=== PATIENT | male | born 1960 | race Caucasian/White ===

== ENCOUNTER 2024-09-26 12:39 | Emergency (ER) | payer MEDICAID ==
[~2024-09-26] VITALS: Ht 182.9 cm; Wt 81.8 kg
[2024-09-26 14:39] VITALS: TEMP 97.8
--- NOTE | 2024-09-26 15:58 | Physician Documentation ---
History of Present Illness ~ Chief Complaint: ETOH Stated Complaint: DETOX Time Seen by MD: 14:05 Primary Medical Doctor: Dr. Butt in [place] Mode of Arrival: POV, Ambulatory HPI Patient is seen today stating he is needing to detox off alcohol. Patient states he last had a drink this morning and states he is already feeling withdrawals from the drinking. Patient states he drinks 16 or more fluid oz of hard alcohol daily. Patient originally sore he did not drink more than eight fluid oz in triage but now states he drinks at least double that. Patient denies any current chest pain or shortness of breath or abdominal pain or nausea, vomiting, diarrhea. He has no other concern or complaint at this time other than little anxiety. Tetanus within 5 years?: No Medication Reconciliation Allergies: Coded Allergies: No Known Allergies (Unverified , 08/25/24) Past Medical History Smoking Status: Never smoker Review of Systems Constitutional: Denies: chills, fever, weakness Eyes: Denies: pain, blurred vision ENT: Denies: ear pain, nose pain, throat pain, mouth pain Respiratory: Denies: cough, shortness of breath Cardiovascular: Denies: chest pain, palpitations Gastrointestinal: Denies: abdominal pain, nausea, vomiting Genitourinary: Denies: burning, dysuria Male Genitalia: Denies: penile discharge, testicular pain Neurological: Denies: headache, dizziness Musculoskeletal: Denies: pain, swelling Integumentary: Denies: rash, lesions Allergic/Immunologic: Denies: hives, itching Hematologic/Lymphatic: Denies: no symptoms reported Psychiatric: Denies: depression, anxiety Physical Exam Vital Signs: Temperature: 97.8, Source: Oral, Heart Rate: 81, Respiratory Rate: 16, BP: 146/91, Pulse Oximetry: 96, Weight: 81.820 Oxygen Flow Rate: 0 Physical Exam General: Awake and Alert, no acute distress. HEENT: Conjunctiva pink, Sclera clear, Mucus Membranes moist. Neck: Supple without masses and tenderness. Resp: Unlabored. Lungs clear to auscultation bilaterally. Heart: Regular Rate and rhythm, normal S1 and S2 without murmur, rub or gallop. Abdomen: Soft and non tender no organomegaly Extremities: No cyanosis,clubbing or edema. Skin: Warm and Dry. Progress Progress Note Patient transferred into my care around 5:00 p.m. he was very tremulous. I evaluated him at bedside there was concern for seizure activity but he was awake alert oriented during the entire shaking episode. no hallucination. He was not having a seizure. His vitals were completely normal during this. He received some IV fluids and single dose of Ativan. I has been watching him from my computer station and he has had complete resolution of his shaking over the last 1/2 hour. He did endorse to us that his symptoms were driven by anxiety more than anything and they have now resolved. He then requested abruptly to leave the hospital. His vitals still are normal and he plans to go to detox. I would prefer that we observe him for a longer period of time given his shaking episode that he is potentially higher risk for alcohol withdrawal however at this time he is safe for detox facility. I will give him a dose of Librium and advised him to return if he has any worsening symptoms Results/Orders Results/Orders Orders - LEW CHEUNG MD Normal Saline 1000ml (Sodium Chloride 10 (09/26/24 17:05) Completed Orders - LEW CHEUNG MD Lorazepam Inj (Ativan Inj) (09/26/24 17:05) Lorazepam Inj (Ativan Inj) (09/26/24 17:04) Phenobarbital Inj (Phenobarbital Inj.) (09/26/24 17:05) Thiamine Inj. (Thiamine Inj.) (09/26/24 17:05) Phenobarbital Inj (Phenobarbital Inj.) (09/26/24 17:10) Medications Received in ER Medications (Trade) Dose Ordered Sig/Rene Route PRN Reason Start Time Stop Time Status Last Admin Dose Admin (Ativan inj) 1 mg ONCE ONCE IV 09/26/24 17:05 09/26/24 17:06 DC 09/26/24 17:05 1 MG Sodium Chloride 1,000 ml @ 1,000 mls/hr ONCE ONCE IV 09/26/24 17:05 09/26/24 18:04 09/26/24 17:06 1,000 MLS/HR Vital Signs 09/26/24 09/26/24 09/26/24 13:08 14:39 14:49 Temp 97.8 97.8 Pulse 88 81 Resp 18 16 16 B/P (MAP) 122/76 146/91 (109) Pulse Ox 96 O2 Flow Rate 0 Laboratory Tests Test 09/26/24 16:13 09/26/24 16:32 White Blood Count 5.0 Red Blood Count 3.85 L Hemoglobin 11.7 L Hematocrit 34.5 L Mean Corpuscular Volume 89.6 Mean Corpuscular Hemoglobin 30.3 Mean Corpuscular Hemoglobin Concent 33.9 Red Cell Distribution Width 15.3 H Platelet Count 140 Mean Platelet Volume 6.5 L Neutrophils (%) (Auto) 63.7 Lymphocytes (%) (Auto) 21.1 Monocytes (%) (Auto) 10.3 Eosinophils (%) (Auto) 4.2 Basophils (%) (Auto) 0.7 Neutrophils # (Auto) 3.2 Lymphocytes # (Auto) 1.1 Monocytes # (Auto) 0.5 Eosinophils # (Auto) 0.2 Basophils # (Auto) 0.0 CBC Comment Sodium Level 140 Potassium Level 4.0 Chloride Level 105 Carbon Dioxide Level 23.8 L Anion Gap 11 Blood Urea Nitrogen 29 H Creatinine 2.16 H Estimated GFR/1.73 m2 31 BUN/Creatinine Ratio 13.4 Glucose Level 79 Calcium Level 8.1 L Ammonia 22 Albumin 3.2 L Lipase 35 Chemistry Comments Ethyl Alcohol Level 140 H Urine Specimen Description Voided Urine Color Yellow Urine Clarity Clear Urine pH 6.0 Urine Specific [place] <=1.005 Urine Protein Trace Urine Glucose (UA) Negative Urine Ketones Negative Urine Occult Blood Trace-intact Urine Nitrite Negative Urine Bilirubin Negative Urine Urobilinogen 0.2 Urine Leukocyte Esterase Negative Urine RBC 0-2 Urine WBC None seen Urine Squamous Epithelial Cells None seen Urine Bacteria None seen Urine Culture Indicated Not ind Volume Urine Centrifuged 10 ml Urine Comment Urine Opiates Screen Negative Urine Methadone Screen Positive Urine Fentanyl Screen Negative Urine Barbiturates Screen Negative Urine Phencyclidine Screen Negative Urine Amphetamines Screen Negative Urine Benzodiazepines Screen Positive Urine Cocaine Screen Negative Urine Cannabinoids Screen Negative Drug Screen Comment Medical Decision Making Findings Patient is seen today stating he is needing to detox off alcohol. Patient states he last had a drink this morning and states he is already feeling withdrawals from the drinking. Patient states he drinks 16 or more fluid oz of hard alcohol daily. Patient originally sore he did not drink more than eight fluid oz in triage but now states he drinks at least double that. Patient denies any current chest pain or shortness of breath or abdominal pain or nausea, vomiting, diarrhea. He has no other concern or complaint at this time other than little anxiety. Additional Comment Delirium tremens, alcoholic hallucinosis, alcohol withdrawal syndrome, anxiety Departure Disposition: 01 HOME / SELF CARE / HOMELESS Impression: Primary Impression: Alcohol withdrawal syndrome Qualified Codes: F10.930 - Alcohol use, unspecified with withdrawal, uncomplicated Additional Impression: Alcohol abuse Additional Impression Text Barriers to care alcohol use disorder Additional Instructions: This patient has been medically cleared for detox facility. If he has any worsening of his withdrawal symptoms or any seizure activity he should be sent immediately to the emergency department for further treatment and evaluation Referrals: NO PRIMARY CARE PROVIDER (PCP) Signature Scribe Signature: na Attestation: TANGELA Emerson Sep 26, 2024 15:58 LEW CHEUNG MD Sep 26, 2024 17:33
--- NOTE | 2024-09-26 16:16 | ELECTROCARDIOGRAPH REPORT ---
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
[2024-09-26 16:37] LABS: BILIRUBIN,URINE NEGATIVE (Neg); CLARITY,URINE CLEAR (Clear); COLOR,URINE YELLOW (Yellow); GLUCOSE, URINE NEGATIVE (Neg); KETONES,URINE NEGATIVE (Neg); LEUKOCYTE ESTERASE ,URINE NEGATIVE (Neg); NITRITES, URINE NEGATIVE (Neg); OCCULT BLOOD,URINE TRACE-INTACT (Neg); PROTEIN,URINE TRACE mg/dl (Neg); UROBILINOGEN,URINE 0.2 E.U/dL (0.2-1.0)
[2024-09-26 16:38] LABS: BASOPHILS % (AUTO) 0.7 % (0-1); EOSINOPHILS # (AUTO) 0.2 X10'3 (0-0.9); EOSINOPHILS % (AUTO) 4.2 % (0-6); HEMATOCRIT 34.5 % (42.0-52.0); HEMOGLOBIN 11.7 g/dl (14.0-17.9); LYMPHOCYTES # (AUTO) 1.1 X10'3 (1.1-4.8); LYMPHOCYTES % (AUTO) 21.1 % (21-51); MEAN CORPUSCULAR HEMOGLOBIN 30.3 PG (27.0-31.0); MEAN CORPUSCULAR HGB CONC 33.9 g/dL (33.0-36.5); MEAN CORPUSCULAR VOLUME 89.6 FL (78-98); MEAN PLATELET VOLUME 6.5 FL (7.4-10.4); MONOCYTES # (AUTO) 0.5 X10'3 (0-0.9); MONOCYTES % (AUTO) 10.3 % (2-12); NEUTROPHILS # (AUTO) 3.2 X10'3 (1.8-7.7); NEUTROPHILS % (AUTO) 63.7 % (42-75); PLATELET COUNT 140 X10'3 (140-440); RED BLOOD COUNT 3.85 X10'6 (4.70-6.10); RED CELL DISTRIBUTION WIDTH 15.3 % (11.5-14.5)
[2024-09-26 16:38] LABS: UA COLLECTION TYPE VOIDED
[2024-09-26 16:54] LABS: BACTERIA,URINE NONE SEEN /HPF (Neg); RBC,URINE 0-2 /HPF (0-2); SQUAMOUS EPITHELIAL CELL,UR NONE SEEN /LPF (FEW); WBC,URINE NONE SEEN /HPF (0-4)
[2024-09-26] MEDS: LORazepam 2 mg/ml vial IV ONE (17:05)
[2024-09-26] MEDS ORDERED: phenoBARBITAL inj 260 MG in normal saline 100ml IV soln 98 ML IV ONE (17:05)
[2024-09-26] MEDS: normal saline 1000ml 1,000 ML IV ONE (17:06)
[2024-09-26 17:07] LABS: URINE AMPHETAMINE SCREEN NEGATIVE (Neg); URINE BARBITUATE SCREEN NEGATIVE (Neg); URINE BENZODIAZEPINES SCREEN POSITIVE (Neg); URINE CANNABINOID SCREEN NEGATIVE (Neg); URINE COCAINE SCREEN NEGATIVE (Neg); URINE METHADONE SCREEN POSITIVE (Neg); URINE OPIATE SCREEN NEGATIVE (Neg); URINE PHENCYCLIDINE SCREEN NEGATIVE (Neg)
[2024-09-26] MEDS: LORazepam 2 mg/ml vial ONE (17:08)
[2024-09-26] MEDS ORDERED: phenoBARBITAL inj 130 MG in normal saline 100ml IV soln 99 ML IV ONE (17:10)
[2024-09-26 17:12] LABS: ALBUMIN 3.2 G/DL (3.4-5.0); ANION GAP 11 (8-16); BLOOD UREA NITROGEN 29 MG/DL (7-18); BUN/CREATININE RATIO 13.4 (10.0-20.0); CALCIUM 8.1 MG/DL (8.5-10.1); CHLORIDE 105 MMOL/L (99-107); CREATININE 2.16 MG/DL (0.60-1.10); ETHANOL 140 MG/DL (<10); GLUCOSE 79 MG/DL (70-104); LIPASE 35 U/L (16-77); SODIUM 140 MMOL/L (135-145); TOTAL CARBON DIOXIDE 23.8 MMOL/L (24-32); eCRCL 38 ML/MIN; eGFR 31 ML/MIN
[2024-09-26 17:48] VITALS: BP 162/88; PULSE 83; RESP 16; O2SAT 96
[2024-09-26] MEDS: thiamine 100mg/ml 2ml inj. IV ONE (17:48)
[2024-09-26] MEDS: chlordiazePOXIDE 25mg capsule PO ONE (17:48)
== END 2024-09-26 17:50 | disposition home or self-care (01) ==
LOC: ER 12:40
DX: F10.239 Alcohol dependence with withdrawal, unspecified (principal); F41.9 Anxiety disorder, unspecified; I49.8 Other specified cardiac arrhythmias; Y90.6 Blood alcohol level of 120-199 mg/100 ml
CPT/HCPCS: 36415; 80048; 80305; 80320; 81001; 82140; 83690; 85025; 93005; 96361; 96374; 99284; J2060; J7030

== ENCOUNTER 2024-10-03 12:16 | Emergency (ER) | payer MEDICAID ==
[~2024-10-03] VITALS: Ht 182.9 cm; Wt 81.8 kg
[2024-10-03 12:21] VITALS: BP 170/95; PULSE 82; RESP 18; O2SAT 94
--- NOTE | 2024-10-03 12:28 | Physician Documentation ---
History of Present Illness ~ Chief Complaint: Medical Clearance Stated Complaint: MEDICAL CLEARANCE Time Seen by MD: 12:23 OK to notify your PCP?: No Primary Medical Doctor: Dr. Butt in [facility] 64-YEAR-OLD MALE PRESENTS TO THE ED WITH A COMPLAINT OF ALCOHOL INTOXICATION AND REQUEST FOR CLEARANCE TO GO TO [facility]. HE STATES HE NORMALLY DRINKS A QT OF ALCOHOL A DAY DENIES EVER BEING HOSPITALIZED FOR SEVERE WITHDRAWALS. SAYS HIS LAST DRINK WAS THIS MORNING. Day of Onset: Oct 03, 2024 Tetanus within 5 years?: No Medication Reconciliation Allergies: Coded Allergies: No Known Allergies (Unverified , 08/25/24) Review of Systems All Other Systems at this time: Reviewed and Negative ROS As stated above in the [facility], otherwise all systems are reviewed and negative. Physical Exam Vital Signs: Temperature: 98.7, Source: Oral, Heart Rate: 82, Respiratory Rate: 18, BP: 170/95, Pulse Oximetry: 94, Weight: 81.820 Physical Exam General: Alert, no apparent distress. Respiratory: Lungs clear, no respiratory distress. Cardiovascular: Regular rate and rhythm, no murmurs. Neurologic: Oriented x4. Psychiatric: Normal mood and affect. Skin: Normal color, warm and dry. No edema, no ecchymosis. Progress Results/Orders Results/Orders Vital Signs 10/03/24 12:21 Temp 98.7 Pulse 82 Resp 18 B/P (MAP) 170/95 Pulse Ox 94 Medical Decision Making Findings I do not see any reason why this patient can not be medically cleared for alcohol recovery.. Does not present intoxicated or an acute withdrawal Differential Dx:Considerations: Include: Intoxication-Alcohol, Intoxication- Other drug, Personality disorder, Substance abuse disorder, Acute delirium, Closed head injury, Cervical spine injury, Skull fracture, Fracture(s), Abrasion, Contusion, Foreign body, Hematoma, Laceration, Alcohol withdrawl syndrom, Encephalopathy, Hepatitis, Medically stable, Other Departure Disposition: 01 HOME / SELF CARE / HOMELESS Impression: Primary Impression: General medical exam Condition: Stable Discharge Instructions: Alcohol Intoxication, [id number] Additional Instructions: Medically clear for alcohol recovery Referrals: NO PRIMARY CARE PROVIDER (PCP) Signature Scribe Signature: f Attestation: Scribed for Miguel Angel Weinstein [place]. Representative by Miguel Angel Johnson NP . 10/03/24 14:24 MIGUEL ANGEL WEINSTEIN NP Oct 03, 2024 12:28
[2024-10-03 14:46] VITALS: TEMP 98.7
[2024-10-18] MEDS ORDERED: DOXY-460 PO (10:30)
== END 2024-10-03 14:47 | disposition home or self-care (01) ==
LOC: ER 12:17
DX: F10.129 Alcohol abuse with intoxication, unspecified (principal); Y90.9 Presence of alcohol in blood, level not specified
CPT/HCPCS: 99281; 99282

== ENCOUNTER 2024-10-12 08:28 | Inpatient (IN) | payer MEDICAID ==
[~2024-10-12] VITALS: Ht 182.9 cm; Wt 74.7 kg
--- NOTE | 2024-10-12 09:23 | ELECTROCARDIOGRAPH REPORT ---
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 Manuel Leung Measurements Intervals [place] Rate: 85 P: 50 UT: 147 QRS: -23 QRSD: 91 T: 20 QT: 419 QTc: 499 Interpretive Statements Sinus rhythm Borderline left axis deviation Borderline prolonged QT interval Baseline wander in lead(s) V2 Electronically Signed On 10-12-2024 18:22:[address] Manuel Leung Please click the below link to view image of tracing.
--- NOTE | 2024-10-12 09:25 | Physician Documentation ---
History of Present Illness ~ Chief Complaint: Extremity Swelling Stated Complaint: CELLULITIS Time Seen by MD: 09:02 OK to notify your PCP?: Yes Primary Medical Doctor: Dr. Butt in [place] Mode of Arrival: Ambulatory HPI 64-year-old gentleman with a history of hypertension, hypothyroidism, gastroesophageal reflux disease, past history of IV drug abuse, history of alcohol abuse and he has been sober for two days currently he has been at the sober living home for one month came to the emergency room because of left leg pain and swelling that has been going on for three months. The pain is continuous 8/10 and steady hurts. It feels like pressure. Currently he is taking doxycycline and Keflex. Patient denies chest pain, shortness a breath, abdominal pain and nausea vomiting. He also mentioned that he will like to detox from alcohol. He told me that he has almost done drinking. Medication Reconciliation Allergies: Coded Allergies: No Known Allergies (Unverified , 10/12/24) Review of Systems ROS As stated above in the HPI, otherwise all systems are reviewed and negative. Physical Exam Vital Signs: Temperature: 100.0, Source: Temporal, Heart Rate: 99, Respiratory Rate: 16, BP: 172/94, Pulse Oximetry: 99, Weight: 74.650 Oxygen Flow Rate: 0 General Appearance Reviewed vital signs and noted to have high blood pressure. Const: Not in acute cardiopulmonary distress Head: Atraumatic Eyes: Normal Conjunctiva ENT: Normal External Ears, Nose and Mouth. Moist mucous membranes Neck: Full range of motion. No meningismus Resp: Clear to auscultation bilaterally. Normal work of breathing Cardio: Regular rate and rhythm, no murmurs. Skin well perfused Abd: Soft, non-tender, non-distended. Normal bowel sounds. No rebound or guarding Skin: No petechiae or rashes. Warm and dry Back: No midline or flank tenderness Ext: No cyanosis, or edema Neuro: Awake and alert Psych: Normal Mood and Affect Procedures Procedures Left EJ intravenous cannula insertion. Being an IV drug abuser in the past the patient's peripheral veins used. Therefore I inserted the left EJ vein with 18 gauge cannula for fluid therapy and IV infusion. The patient tolerated the procedure well. Progress Results/Orders Results/Orders Orders - MICHAEL LINDSAY MD Culture Blood (10/12/24 09:12) Electrocardiogram (10/12/24 09:12) Saline Lock (10/12/24 09:12) Vl Venous (10/12/24 09:12) Normal Saline 1000ml (Sodium Chloride 10 (10/12/24 09:25) Page Hospitalist (10/12/24 11:10) Completed Orders - MICHAEL LINDSAY MD Electrocardiogram (10/12/24 09:12) Cbc/Diff (10/12/24 09:12) MG (10/12/24 09:12) Procalcitonin (10/12/24 09:12) Piperacillin/Tazo 3.375gm/50ml (Zosyn 3. (10/12/24 09:15) BMP (10/12/24 09:12) Lacticsepsis (10/12/24 09:12) PBNP (10/12/24 09:12) Pt Inr (10/12/24 09:12) PTT (10/12/24 09:12) Losartan Tablet (Cozaar Tablet) (10/12/24 09:15) Vl Venous (10/12/24 09:12) Ethanol (10/12/24 09:12) C-Reactive Protein (10/12/24 09:12) TSH (10/12/24 09:19) Diazepam Inj (Valium Inj) (10/12/24 11:10) Ua W/Microscopic, Cult If Ind (10/12/24 10:35) Medications Received in ER Medications (Trade) Dose Ordered Sig/Rene Route PRN Reason Start Time Stop Time Status Last Admin Dose Admin (Cozaar tablet) 50 mg DAILY ONCE PO 10/12/24 09:15 10/12/24 09:18 DC 10/12/24 10:16 50 MG Vital Signs 10/12/24 10/12/24 10/12/24 10/12/24 08:31 08:58 09:15 10:15 Temp 100.0 Pulse 99 87 84 Resp 16 13 16 B/P (MAP) 172/94 174/109 (130) 169/97 (121) Pulse Ox 99 95 96 O2 Flow Rate 0 0 0 10/12/24 10:16 Pulse 85 Laboratory Tests Test 10/12/24 09:34 10/12/24 10:35 White Blood Count 8.2 Red Blood Count 3.81 L Hemoglobin 11.9 L Hematocrit 34.4 L Mean Corpuscular Volume 90.1 Mean Corpuscular Hemoglobin 31.1 H Mean Corpuscular Hemoglobin Concent 34.5 Red Cell Distribution Width 15.8 H Platelet Count 222 Mean Platelet Volume 6.9 L Neutrophils (%) (Auto) 74.9 Lymphocytes (%) (Auto) 12.2 L Monocytes (%) (Auto) 9.8 Eosinophils (%) (Auto) 2.0 Basophils (%) (Auto) 1.1 H Neutrophils # (Auto) 6.2 Lymphocytes # (Auto) 1.0 L Monocytes # (Auto) 0.8 Eosinophils # (Auto) 0.2 Basophils # (Auto) 0.1 CBC Comment Prothrombin Time 10.4 INR International Normalized Ratio 1.0 Activated Partial Thromboplast Time 21 L Coagulation Comments Sodium Level 132 L Potassium Level 4.4 Chloride Level 100 Carbon Dioxide Level 25.5 Anion Gap 7 L Blood Urea Nitrogen 26 H Creatinine 2.19 H Estimated GFR/1.73 m2 31 BUN/Creatinine Ratio 11.9 Glucose Level 85 Lactic Acid Level 1.8 Calcium Level 8.5 Magnesium Level 1.7 C-Reactive Protein 7.09 H Pro-B-Type Natriuretic Peptide 1667 H Albumin 3.2 L Procalcitonin 0.08 Thyroid Stimulating Hormone (TSH) 7.79 H Chemistry Comments Ethyl Alcohol Level < 10 Urine Specimen Description Non-specified Urine Color Yellow Urine Clarity Clear Urine pH 7.0 Urine Specific [place] 1.010 Urine Protein 30 H Urine Glucose (UA) Negative Urine Ketones Negative Urine Occult Blood Trace-intact Urine Nitrite Negative Urine Bilirubin Negative Urine Urobilinogen 0.2 Urine Leukocyte Esterase Negative Urine RBC 0-2 Urine WBC 0-4 Urine Squamous Epithelial Cells Few Urine Bacteria Few Urine Culture Indicated Not ind Volume Urine Centrifuged 10 ml Urine Comment Medical Decision Making Findings During the physical examination, the findings suggestive of acute life- threatening condition such as JVD, tracheal deviation, acidotic breathing, noisy stridorous breath sounds, pulses paradoxus, muffled heart sounds, unequal breath sounds, abdominal rigidity and rebound tenderness, focal neurological deficits, cool clammy skin, severe hypotension, severe tachycardia or bradycardia are absent. Patient has intense cellulitis of the left lower extremity. Ultrasound vascular studies is negative for deep vein thrombosis . CBC WBC 8.2 H and H11.9 and 34.4 platelets 222. Sodium 132 potassium 4.4 chloride 100 bicarb 25.5 BUN 26 creatinine 2.19 glucose 85. Lactate is 1.8 and broke out is 0.08. TSH is 7.79. The patient has been taking doxycycline and Keflex for about two weeks and not improving. It is a failed outpatient therapy for cellulitis. The patient will be admitted for acute cellulitis of the left lower leg as well as alcohol withdrawal syndrome. DISCLAIMER Inadvertent spelling and grammatical errors,inadvertent administrator pesticide errors,syntax errors, grammatical errors, and spelling errors are likely due to EMR/dictation software use and do not reflect on the overall quality of patient care. Note that the electronic time recorded on this note does not necessarily reflect the actual time of the patient encounter. Departure Disposition: 09 ADMITTED INPATIENT Impression: Primary Impression: Cellulitis of left lower leg Additional Impression: Alcohol withdrawal syndrome Referrals: NO PRIMARY CARE PROVIDER (PCP) Signature Scribe Signature: None Attestation: My dictation MICHAEL LINDSAY MD Oct 12, 2024 09:24
[2024-10-12 09:56] LABS: MEAN PLATELET VOLUME 6.9 FL (7.4-10.4); RED CELL DISTRIBUTION WIDTH 15.8 % (11.5-14.5)
[2024-10-12 10:07] LABS: APTT 21 SECONDS (22-32); INR 1.0 INR
[2024-10-12 10:23] LABS: CREATININE 2.19 MG/DL (0.60-1.10); PRO BRAIN NATRIURETIC PEPTIDE 1667 PG/ML (0-125); TOTAL CARBON DIOXIDE 25.5 MMOL/L (24-32); eCRCL 36 ML/MIN; eGFR 31 ML/MIN
[2024-10-12 11:09] LABS: LEUKOCYTE ESTERASE ,URINE NEGATIVE (Neg); NITRITES, URINE NEGATIVE (Neg); OCCULT BLOOD,URINE TRACE-INTACT (Neg)
[2024-10-12 11:10] LABS: UA COLLECTION TYPE NON-SPECIFIED
[2024-10-12 11:15] LABS: ETHANOL < 10 MG/DL (<10)
[2024-10-12 11:16] LABS: SQUAMOUS EPITHELIAL CELL,UR FEW /LPF (FEW)
--- NOTE | 2024-10-12 11:38 | VASCULAR REPORT ---
Technique: Real-time ultrasound imaging, with color Doppler and compression of the left common femor al vein, femoral vein, greater saphenous vein, and popliteal vein. Indication: Redness and swelling Comparison: None Findings: There is normal compressibility and flow augmentation in all of the imaged deep veins. There are no f illing defects. Left inguinal lymph node with fatty hilum measuring 2.0 x 0.9 cm. Left lower extremity soft tissue edema. Impression: No evidence of DVT in the left lower extremity.
[2024-10-12] MEDS: normal saline 1000ml 1,000 ML IV ONE (11:42)
[2024-10-12] MEDS: diazepam inj 5 MG/ML inj. IV ONE (11:42)
[2024-10-12] MEDS: piperacillin/tazo 3.375gm/50ml 50 ML IV ONE (11:43)
[2024-10-12] MEDS ORDERED: mag hydrox/Alum hydrox/simeth 30ml oral suspension PO PRN (12:20)
[2024-10-12] MEDS ORDERED: magnesium sulf-water 4G/100mL 100 ML IV PRN (12:20)
[2024-10-12] MEDS ORDERED: magnesium sulf-water 2g/50mL 50 ML IV PRN (12:20)
[2024-10-12] MEDS ORDERED: ondansetron/PF 4mg/2ml inj IV PRN (12:20)
[2024-10-12] MEDS ORDERED: magnesium Cl slow-release 64mg tablet PO PRN (12:20)
[2024-10-12] MEDS ORDERED: potassium Cl 20 mEq SR tablet PO PRN ×2 (12:20)
[2024-10-12] MEDS ORDERED: potassium Cl 40MEQ/1/2NS 520ml 520 ML IV PRN (12:20)
[2024-10-12] MEDS ORDERED: magnesium hydroxide 30ml (MOM) UD suspension PO PRN (12:20)
[2024-10-12] MEDS: PERFLUTREN PROTEIN-A MICROSPHR (Optison) 0.22 MG/ML 3ML VIAL IV ONE (12:55)
[2024-10-12 13:19] LABS: OSMOLALITY 297 MOSM/K (280-300)
[2024-10-12 13:25] LABS: CHOL/HDL RATIO 3.4 (0.00-4.99); LDL CHOLESTEROL 106 MG/DL (50-100)
--- NOTE | 2024-10-12 13:36 | RADIOLOGY REPORT ---
EXAM: DI CHEST,SINGLE VIEW Indication: SOB Technique: Single frontal view of the chest was obtained Comparison: None FINDINGS: Lines and Tubes: None Lungs: No focal consolidation. Pleura: No effusion. No pneumothorax. Cardiomediastinal contours: Unremarkable Bones: No acute osseous abnormality. IMPRESSION: No acute cardiopulmonary disease.
[2024-10-12] MEDS: CefTRIAXone 2gm/D5W 50ml BAG 50 ML IV SCH (13:50)
--- NOTE | 2024-10-12 14:41 | CARDIOLOGY REPORT ---
APPROVED REPORT EXAM: Comprehensive 2D, Doppler, and color-flow Echocardiogram. 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 132.2 cm/s AoV VTI 29.2 cm AO Peak GR. 7.0 mmHg AO Mean GR. 4 mmHg LVOT VTI 22.93 cm LVOT Peak Suraj. 99.5 cm/s MURPHY(VTI)/BSA 2.93 cm2/m2 MURPHY (VTI) 2.93 cm2 Mitral Valve MV E Velocity 85.0 cm/s MV Peak Gr. 5 mmHg MV DECEL TIME 168 ms MV A Velocity 82.2 cm/s MV PHT 60 ms E/A Ratio 1.0 MVA (PHT) 3.67 cm2 MR [id number] cm/s MV [id number] cm/sMR PG Suh642.2 mmHg TDI Medial E' P. V 9.16 cm/s E/Medial E' 9.3 Tricuspid Valve TR P. Velocity 283 cm/s RAP ESTIMATE 10 mmHg TR Peak Gr. 32 mmHg RVSP 42 mmHg LEFT VENTRICLE Normal LV size and function. Mild concentric hypertrophy. LVEF is 65%. RIGHT VENTRICLE RV appears mildly dilated with normal contractility. RVSP is estimated at 42 mmHG. ATRIA The left atrium size is normal. AORTIC VALVE Trileaflet AV appears sclerotic without stenosis. Mild insufficiency. MITRAL VALVE MV is thickened with no annular calcification or stenosis. Mild mitral regurgitation. TRICUSPID VALVE The tricuspid valve is normal in structure. Trace tricuspid regurgitation. PULMONIC VALVE The pulmonary valve is normal in structure. Trace pulmonic regurgitation. GREAT VESSELS The aortic root is normal in size. The ascending aorta is normal in size. The IVC is normal in size a nd collapses >50% with inspiration. PERICARDIUM There is no pericardial effusion. Other Information Study Quality: Adequate
[2024-10-12] MEDS: vancomycin inj. 750 MG in normal saline 250ml IV soln 250 ML IV SCH (16:18)
[2024-10-12 16:48] VITALS: RESP 16; O2SAT 96
[2024-10-12] MEDS ORDERED: CHLO25CA10 PO (17:09)
[2024-10-12] MEDS ORDERED: METH-603 PO (17:16)
[2024-10-12] MEDS ORDERED: LEVO125T PO (17:18)
--- NOTE | 2024-10-12 17:52 | HISTORY AND PHYSICAL-Residence ---
History & Physical Providers to CC Resident Creating Document: ELEANOR GOODRICHMAHESH MONSALVE CC: JANY RENEE MD ~ History of Present Illness Primary Medical Doctor: Dr. Butt in [place] Reason for Admit\Complaint: Lower extremity pain History of Present Illness Patient is 63-year-old male with history of COPD, CKD, hypertension, hypothyroidism, neuropathy and gout who came to the ED due to lower extremity pain. Patient reports that 3 weeks ago he presented with progressive lower extremity edema, erythema and pain which started in both feet and then progressively extended to his legs, pain is constant, 6 to 8/10 in intensity, he takes methadone daily due to history of heroin abuse. He denies subjective fevers or chills, however, he did have elevated temperature in the ED of 100F. In addition, he reports he has been experiencing increasing weakness, shortness of breath on exertion, worse for the past 2 weeks, he reports that he can only walk around 50-100 feet before needing to stop to catch his breath. Of note, patient failed outpatient management with doxycycline and Keflex. Patient has not seen a PCP but has an upcoming appointment at [facility]. Allergies: Coded Allergies: No Known Allergies (Unverified , 10/12/24) Home Medications Home Medications Active Reported Synthroid (Levothyroxine Sodium) Unknown Strength Tablet Unknown Dose PO DAILY 30 Days Dolophine* (Methadone HCl) 10 Mg Tablet 40 Mg PO TID Librium (Chlordiazepoxide Hcl) 25 Mg Capsule 25 Mg PO DAILY 2 Days Past Medical History Past Medical History COPD, hypertension, hypothyroidism, neuropathy and gout Family History Family History: FH: heart disease FATHER Past Social History Smoking: Cigarettes (Currently smokes 1 cigarette a day. Used to smoke 10 cigarettes a day. Has been smoking for the past 20 years) Alcohol Use: Heavy (1 pt of vodka a day. Last drink 2 days ago) Drug Use: Other (Used to use heroin and methamphetamines. Quit 20 years ago) Lives with: Other Lives In: Other (Sober living home) Occupation: disabled ROS ROS All systems were reviewed and found negative except for pertinent positives mentioned in HPI Exam Vitals: Vital Signs Date Time Temp Pulse Resp B/P (MAP) Pulse Ox O2 Delivery O2 Flow Rate FiO2 10/12/24 16:48 16 96 Room Air 10/12/24 15:27 78 10/12/24 10:15 169/97 (121) 0 10/12/24 08:31 100.0 General: General: awake, alert oriented to place, time, and person HEENT: No JVD. No pallor present, no icterus, moist mucous membranes Neck: No masses and tenderness Resp: Unlabored. Lungs clear to auscultation bilaterally. Chest: Normal expansion Cardiovascular: Regular Rate and rhythm, normal S1 and S2, S4 present, without murmur or rub Abdomen: Soft and nontender, no organomegaly, no guarding and rigidity, bowel sounds present Neuro: Intention tremor observed. No focal weakness in the upper and lower limb muscles, power of the muscles 5/5 bilateral upper and lower extremities, normal reflexes bilaterally. Cranial nerves intact Extremities: Is significant edema, erythema and tenderness in both lower extremities extending from feet to distal thighs. Worse on the left. No cyanosis or clubbing Skin: Warm and Dry Psych: Normal affect. Cooperative with care Diagnostic Data Last Recorded Lab Results: 10/12/24 0934 10/12/24 0934 Diagnostic Data: Laboratory Tests Test 10/12/24 09:34 Prothrombin Time 10.4 SECONDS (9.0-12.0) INR International Normalized Ratio 1.0 INR Activated Partial Thromboplast Time 21 SECONDS (22-32) L Coagulation Comments Advance Care Planning Advanced Care plannin - 30 Minutes Additional Plan Patient is 63-year-old male with history of COPD, CKD, hypertension, hypothyroidism, neuropathy and gout who came to the ED due to lower extremity pain. Admitted for evaluation management of lower extremity cellulitis and mild alcohol withdrawal. Bilateral lower extremity cellulitis, left worse than right DVT ruled out No sepsis/SIRS criteria Patient failed outpatient treatment with Keflex and doxycycline WBC, procalcitonin and lactic acid are unremarkable Patient is high abundant 9 weekly stable Patient had a single episode of low-grade fever in ED Received one dose of Zosyn in ED Will continue with ceftriaxone and vancomycin Will continue monitoring for signs of sepsis Alcohol use disorder Mild alcohol withdrawal Patient's last drink was 2 days ago Has mild asterixis Will start alcohol withdrawal protocol Patient is already attempting to quit and is staying at a sober living home Known history of CKD III Mild hyponatremia Patient states that current creatinine is close to his baseline Used to follow with kidney doctor in [facility] Creatinine is 2.1, GFR is 31 UA and Urine lytes ordered Continue monitoring BMP Possible chronic heart failure with preserved ejection fraction Dyspnea on exertion Lower extremity edema Hypertension, uncontrolled Patient with significant shortness of breaths on exertion and increasing lower extremity edema Patient reports taking losartan intermittently Echocardiogram shows EF of 65%. Mildly dilated right ventricle and mildly elevated RVSP Chest x-ray is unremarkable Will hold IV fluids in view of no signs of sepsis Will start IV Lasix 40 mg daily Resume losartan daily. Patient advised on medication compliance History of COPD, not in exacerbation Currently not on inhalers He will likely benefit from pulmonary function tests on an outpatient basis History of gout Will obtain uric acid levels Patient is currently not on medications. Has taken allopurinol in the past History of hypothyroidism: Continue levothyroxine 200 mcg day TSH is elevated but T4 is normal Code Status: Full code DVT prophylaxis: Heparin Analgesia/sedation: Methadone Nutrition: Heart healthy diet PT: Ordered Prognosis: Guarded Disposition: Admit to ortho floor with tele monitoring. Continue medical management Mahesh Goodrich MD Internal Medicine Resident PGY-1 Date of Service: Oct 12, 2024 Billing Provider: JANY RENEE MD, LEONARDO LUIS Oct 12, 2024 17:52
[2024-10-12 18:00] VITALS: BP 124/70; PULSE 75; TEMP 97.9; O2SAT 96
[2024-10-12] MEDS ORDERED: haloperidol lactate 5mg/ml inj IM PRN (18:15)
[2024-10-12] MEDS: heparin, porcine 5000 units/ml vial SQ SCH (19:34)
[2024-10-12] MEDS: thiamine 100mg/ml 2ml inj. IV SCH (19:34)
[2024-10-12] MEDS: K and/or MAG REPLACEMENT MC SCH (19:34)
[2024-10-12] MEDS: methadone 10mg tablet PO SCH (19:34)
[2024-10-12] MEDS: docusate sod 100mg capsule PO SCH (19:34)
[2024-10-12 22:00] VITALS: BP 141/77; PULSE 85; RESP 16; TEMP 99; O2SAT 94
[2024-10-13] MEDS: HYDROcodone/acetaminophen 10/325mg tab PO PRN (04:50)
[2024-10-13 05:00] VITALS: BP 154/70; PULSE 89; RESP 16; TEMP 98.7; O2SAT 97
[2024-10-13 05:52] LABS: MEAN PLATELET VOLUME 7.1 FL (7.4-10.4); RED CELL DISTRIBUTION WIDTH 16.5 % (11.5-14.5)
[2024-10-13 06:00] LABS: INR 1.1 INR
[2024-10-13 06:27] LABS: CREATININE 2.61 MG/DL (0.60-1.10); PHOSPHORUS 3.3 MG/DL (2.3-4.5); TOTAL CARBON DIOXIDE 28.1 MMOL/L (24-32); eCRCL 31 ML/MIN; eGFR 25 ML/MIN
[2024-10-13 06:54] LABS: OSMOLALITY UA 373.0 MOSM/K (50-1400)
[2024-10-13 07:14] LABS: CREATININE,URINE RANDOM 48.0 MG/DL; TOTAL PROTEIN,URINE RANDOM 63.5 MG/DL; UA UREA RANDOM 368.0 MG/DL
[2024-10-13] MEDS: multivitamins, therapeutics tablet PO SCH (07:52)
[2024-10-13] MEDS: levoTHYROXINE 100mcg tablet PO SCH (07:52)
[2024-10-13] MEDS: folic acid 1mg/0.2ml inj IV SCH (07:54)
[2024-10-13 08:00] VITALS: RESP 16; O2SAT 97
[2024-10-13 10:00] VITALS: BP 135/72; PULSE 90; RESP 18; TEMP 97.8; O2SAT 91
[2024-10-13] MEDS: normal saline 1000ml 1,000 ML IV SCH (12:35)
[2024-10-13 13:02] LABS: PRO BRAIN NATRIURETIC PEPTIDE 2452 PG/ML (0-125)
[2024-10-13] MEDS: normal saline 1000ml 1,000 ML IV ONE (13:29)
--- NOTE | 2024-10-13 13:33 | PROGRESS NOTE- Residence ---
Progress Note - Resident Providers to CC Resident Creating Document: ЮЛИЯ MARI, JESUS ~ Antibiotic Timeout Antibiotic Ordered?: Yes Subjective The patient was seen and examined at bedside today. He complains of a gout flare up on the 1st MCP joint of his right hand. He appears dry today. Objective Vital Signs Date Time Temp Pulse Resp B/P (MAP) Pulse Ox O2 Delivery O2 Flow Rate FiO2 10/13/24 11:14 16 10/13/24 10:00 97.8 90 135/72 (93) 91 Room Air 10/12/24 10:15 0 Result Diagram: 10/13/242 10/13/24441 General: awake, alert oriented to place, time, and person HEENT: No JVD. No pallor present, no icterus, moist mucous membranes Neck: No masses and tenderness Resp: Unlabored. Lungs clear to auscultation bilaterally. Chest: Normal expansion Cardiovascular: Regular Rate and rhythm, normal S1 and S2, S4 present, without murmur or rub Abdomen: Soft and nontender, no organomegaly, no guarding and rigidity, bowel sounds present Neuro: Intention tremor observed. No focal weakness in the upper and lower limb muscles, power of the muscles 5/5 bilateral upper and lower extremities, normal reflexes bilaterally. Cranial nerves intact Extremities: No edema. Erythema and tenderness in both lower extremities extending from feet to knees. No cyanosis or clubbing. Right MCP joint erythematous, swollen and tender with limited ROM Skin: Warm and Dry Psych: Normal affect. Cooperative with care Coagulation Studies Laboratory Tests Test 10/12/24 09:34 10/13/24 04:42 10/13/24 11:28 Activated Partial Thromboplast Time 21 SECONDS (22-32) L Prothrombin Time 10.9 SECONDS (9.0-12.0) INR International Normalized Ratio 1.1 INR Coagulation Comments D-Dimer 2.39 MG/L FEU (0-0.50) H D-Dimer Comment Assessment Assessment Patient is 63-year-old male with history of COPD, CKD, hypertension, hypothyroidism, neuropathy and gout who came to the ED due to lower extremity pain. Admitted for evaluation management of lower extremity cellulitis and mild alcohol withdrawal. Plan Plan Bilateral lower extremity cellulitis, left worse than right DVT, ruled out No sepsis/SIRS criteria Patient failed outpatient treatment with Keflex and doxycycline Discontinued vancomycin and ceftriaxone and started the patient on IV linezolid 600 mg twice daily and Zosyn TID. Patient is hemodynamically stable. Continue IV fluids at 100 mL/hour. Will continue monitoring for signs of sepsis. Alcohol use disorder Mild alcohol withdrawal Patient's last drink was 2 days ago Has mild asterixis Will start alcohol withdrawal protocol Patient is already attempting to quit and is staying at a sober living home Known history of CKD III Mild hyponatremia Kidney function worsened. Creatinine elevated from 2.19-2.61. Discontinued Lasix and started him on IV fluids. 1 L NS bolus followed by 100 mL/hour. Used to follow with kidney doctor in [facility] Continue monitoring BMP Chronic HFpEF, not in exacerbation Dyspnea on exertion Lower extremity edema DVT absent. Rule out PE with V/Q scan. Echocardiogram shows EF of 65%. Mildly dilated right ventricle and mildly elevated RVSP Chest x-ray is unremarkable Hypertension Hold losartan and start amlodipine 10 mg daily. History of COPD, not in exacerbation Currently not on inhalers He will likely benefit from pulmonary function tests on an outpatient basis Acute flare-up of gout, right 1st MCP joint Uric acid 8.3. 60 mg Kenalog IM once. If kidney function gets better, we will start him on colchicine. Start allopurinol on discharge. History of hypothyroidism Continue levothyroxine 200 mcg day TSH is elevated but T4 is normal. Code Status: Full code DVT prophylaxis: Heparin Analgesia/sedation: Methadone Nutrition: Heart healthy diet PT: Ordered Prognosis: Guarded Disposition: Continue care in ortho floor. IV fluids today and continue IV antibiotics. Pending V/Q scan. Start allopurinol on discharge. Юлия Mari MD Internal Medicine Resident, PGY-1 Date of Service: Oct 13, 2024 Billing Provider: JANY RENEE MD,ЮЛИЯ AMBROSE, RES Oct 13, 2024 13:33
[2024-10-13 14:05] LABS: URINE AMPHETAMINE SCREEN NEGATIVE (Neg); URINE BARBITUATE SCREEN NEGATIVE (Neg); URINE BENZODIAZEPINES SCREEN POSITIVE (Neg); URINE CANNABINOID SCREEN NEGATIVE (Neg); URINE COCAINE SCREEN NEGATIVE (Neg); URINE METHADONE SCREEN POSITIVE (Neg); URINE OPIATE SCREEN NEGATIVE (Neg); URINE PHENCYCLIDINE SCREEN NEGATIVE (Neg)
[2024-10-13] MEDS: linezolid 600mg/300ml PREMIX 300 ML IV ONE (15:50)
[2024-10-13] MEDS: triamcinolone acetonide 40mg/ml inj IM ONE (15:54)
[2024-10-13 16:23] LABS: CREATININE 2.73 MG/DL (0.60-1.10); TOTAL CARBON DIOXIDE 30.2 MMOL/L (24-32); eCRCL 29 ML/MIN; eGFR 24 ML/MIN
[2024-10-13] MEDS: piperacillin/tazo 3.375gm/50ml 50 ML IV SCH (17:12)
[2024-10-13 18:00] VITALS: BP 143/76; PULSE 82; RESP 20; TEMP 98; O2SAT 92
[2024-10-13] MEDS: linezolid 600mg/300ml PREMIX 300 ML IV SCH (19:34)
[2024-10-13 20:00] VITALS: RESP 20; O2SAT 92
[2024-10-13 22:30] VITALS: BP 157/82; PULSE 77; RESP 16; TEMP 98.6; O2SAT 94
[2024-10-14 06:17] LABS: MEAN PLATELET VOLUME 7.3 FL (7.4-10.4); RED CELL DISTRIBUTION WIDTH 16.4 % (11.5-14.5)
[2024-10-14 06:25] LABS: INR 1.1 INR
[2024-10-14 06:42] LABS: CREATININE 2.44 MG/DL (0.60-1.10); PHOSPHORUS 3.2 MG/DL (2.3-4.5); TOTAL CARBON DIOXIDE 26.5 MMOL/L (24-32); eCRCL 33 ML/MIN; eGFR 27 ML/MIN
[2024-10-14 06:59] VITALS: BP 145/67; PULSE 71; RESP 22; TEMP 98.1; O2SAT 95
[2024-10-14 08:00] VITALS: RESP 18
[2024-10-14 10:00] VITALS: BP 160/78; PULSE 71; RESP 19; TEMP 97.9; O2SAT 96
--- NOTE | 2024-10-14 11:38 | PROGRESS NOTE- Residence ---
Progress Note - Resident Providers to CC Resident Creating Document: MAHESH HOLLEY CC: JANY RENEE MD ~ Antibiotic Timeout Antibiotic Ordered?: Yes Subjective The patient was seen and examined at bedside today. He states he has hand pain and leg pain has improved significantly. But today he complains of significant neck pain, he reports he has a known history of degenerative disc disease Objective Vital Signs Date Time Temp Pulse Resp B/P (MAP) Pulse Ox O2 Delivery O2 Flow Rate FiO2 10/14/24 10:24 14 10/14/24 06:59 98.1 71 145/67 (93) 95 Room Air 10/13/24 22:30 0.0 Result Diagram: 10/14/24 0530 10/14/24 0530 General: Appears uncomfortable, in pain, awake, alert oriented to place, time, and person HEENT: No JVD. No pallor present, no icterus, moist mucous membranes Neck: No masses and tenderness Resp: Unlabored. Lungs clear to auscultation bilaterally. Chest: Normal expansion Cardiovascular: Regular Rate and rhythm, normal S1 and S2, S4 present, without murmur or rub Abdomen: Soft and nontender, no organomegaly, no guarding and rigidity, bowel sounds present Neuro: Intention tremor observed. No focal weakness in the upper and lower limb muscles, power of the muscles 5/5 bilateral upper and lower extremities, normal reflexes bilaterally. Cranial nerves intact Extremities: No edema. Erythema and tenderness in both lower extremities extending from feet to knees, however, significantly improved. No cyanosis or c lubbing. Right MCP joint erythematous, swollen and tender with limited ROM Skin: Warm and Dry Psych: Normal affect. Cooperative with care Coagulation Studies Laboratory Tests Test 10/12/24 09:34 10/13/24 11:28 10/14/24 05:30 Activated Partial Thromboplast Time 21 SECONDS (22-32) L D-Dimer 2.39 MG/L FEU (0-0.50) H D-Dimer Comment Prothrombin Time 10.8 SECONDS (9.0-12.0) INR International Normalized Ratio 1.1 INR Coagulation Comments Assessment Assessment Patient is 63-year-old male with history of COPD, CKD, hypertension, hypothyroidism, neuropathy and gout who came to the ED due to lower extremity pain. Admitted for evaluation management of lower extremity cellulitis and mild alcohol withdrawal. Plan Plan Bilateral lower extremity cellulitis, left worse than right DVT, ruled out No sepsis/SIRS criteria Patient failed outpatient treatment with Keflex and doxycycline Discontinued vancomycin and ceftriaxone Continue IV linezolid 600 mg twice daily and Zosyn TID, day 2 Patient is hemodynamically stable. Continue IV fluids at 100 mL/hour. Will continue monitoring for signs of sepsis. Severe neck pain History of DDD with possible associated muscle contracture Rule out spinal stenosis Will Obtain MRI of spine Start Baclofen Will consider Medrol dose pack Alcohol use disorder Mild alcohol withdrawal Patient's last drink was 2 days ago Has mild asterixis Will start alcohol withdrawal protocol Patient is already attempting to quit and is staying at a sober living home FLOR on CKD III, likely 2/2 tubular stasis Mild hyponatremia Kidney function worsened yesterday. Slightly improved today to 2.4 Continue IV NS at 100 mL/hour. Used to follow with kidney doctor in [facility] Continue monitoring BMP Will consult nephro in am Chronic HFpEF, not in exacerbation Dyspnea on exertion Rule out PE DVT absent. Echocardiogram shows EF of 65%. Mildly dilated right ventricle and mildly elevated RVSP Chest x-ray is unremarkable Pending V/Q scan Hypertension Hold losartan Continue Amlodipine 10 mg daily. History of COPD, not in exacerbation Currently not on inhalers He will likely benefit from pulmonary function tests on an outpatient basis Acute flare-up of gout, right 1st MCP joint, improved Uric acid 8.3. 60 mg Kenalog IM once. If kidney function gets better, we will start him on colchicine. Will start allopurinol on discharge. History of hypothyroidism TSH is elevated but T4 is normal Continue levothyroxine 200 mcg day Code Status: Full code DVT prophylaxis: Heparin Analgesia/sedation: Methadone Nutrition: Heart healthy diet PT: Ordered Prognosis: Guarded Disposition: Continue care in ortho floor. Pending V/Q scan. Start allopurinol on discharge. Mahesh Elliott MD Internal Medicine Resident PGY-1 Date of Service: Oct 14, 2024 Billing Provider: JANY RENEE MD, LEONARDO LUIS Oct 14, 2024 11:38
[2024-10-14 18:00] VITALS: BP 164/94; PULSE 78; RESP 15; TEMP 97.9; O2SAT 98
--- NOTE | 2024-10-14 19:48 | RADIOLOGY REPORT ---
NUCLEAR MEDICINE VENTILATION/PERFUSION LUNG SCAN. INDICATION: shortness of breath, elevated dimer COMPARISON: None TECHNIQUE: Following intravenous demonstration of 3.3 millicuries of technetium 99m MAA, and inhala tion of 27 mCi of Tc 99m DTPA scintigrams were obtained in multiple projections of the lungs. FINDINGS: There is normal uptake of radionuclide on both the ventilation and perfusion portions of the examinat ion. No mismatched perfusion defects are demonstrated. Uptake is normally homogeneous. IMPRESSION: 1. Low probability for PE.
[2024-10-14 22:00] VITALS: BP 156/85; PULSE 78; RESP 16; TEMP 98.7; O2SAT 100
[2024-10-15 05:35] LABS: MEAN PLATELET VOLUME 7.1 FL (7.4-10.4); RED CELL DISTRIBUTION WIDTH 16.1 % (11.5-14.5)
[2024-10-15 05:52] LABS: INR 1.0 INR
[2024-10-15 06:00] VITALS: BP 160/92; PULSE 74; RESP 19; TEMP 97.8; O2SAT 96
[2024-10-15 06:02] LABS: CREATININE 2.40 MG/DL (0.60-1.10); PHOSPHORUS 4.0 MG/DL (2.3-4.5); TOTAL CARBON DIOXIDE 24.8 MMOL/L (24-32); eCRCL 33 ML/MIN; eGFR 27 ML/MIN
[2024-10-15 07:30] VITALS: RESP 19; O2SAT 96
--- NOTE | 2024-10-15 08:58 | CONSULTATION REPORT - RESIDENT ---
Consult Providers to CC Resident Creating Document: ADRIENNE PATEL RES History of Present Illness Reason for Admit\Complaint: Cellulitis History of Present Illness This is a 64-year-old male with a history of COPD, CKD, hypotension, hypothyroidism, rheumatoid arthritis, gout came to the ED with the chief complaints of bilateral lower extremity edema, erythema, pain. He was diagnosed with cellulitis and is being managed with Zosyn and linezolid. He has known history of CKD 3, with a baseline creatinine of 2.0-2.2, he was given IV Lasix 40 mg two doses and his creatinine increased to 2.6, Lasix was stopped and fluids were restarted, currently on NS@ 75 mL/hour, his creatinine improved to 2.4. Previously used to follow up with the histopath tech in [facility] and he recently moved to [place] and does not have a PCP yet has an upcoming appointment with the PCP. He uses NSAIDs about twice a week for gout flares. Denies any history of diabetes, hypertension, nephrolithiasis. Also denies history of BPH, urine output is good. Denies any blood in urine but has foamy urine. Also developed acute gout flare at right MCP joint, and was given Kenalog 60 mg IM once. Usually uses prednisolone during gout flares and is on allopurinol daily for gout prophylaxis. Allergies: Coded Allergies: No Known Allergies (Unverified , 10/12/24) Home Medications Home Medications Active Reported Synthroid (Levothyroxine Sodium) Unknown Strength Tablet Unknown Dose PO DAILY 30 Days Dolophine* (Methadone HCl) 10 Mg Tablet 40 Mg PO TID Librium (Chlordiazepoxide Hcl) 25 Mg Capsule 25 Mg PO DAILY 2 Days Past Medical History Past Medical History COPD, hypertension, hypothyroidism, neuropathy and gout, rheumatoid arthritis Family History Family History: FH: heart disease FATHER Past Social History Social History Comment Smoking: Cigarettes (Currently smokes 1 cigarette a day. Used to smoke 10 cigarettes a day. Has been smoking for the past 20 years) Alcohol Use: Heavy (1 pt of vodka a day. Last drink 2 days ago) Drug Use: Other (Used to use heroin and methamphetamines. Quit 20 years ago) Exam Vitals: I & O 10/15/24 07:00 Intake Total 1550 ml Output Total 1900 ml Balance -350 ml Intake Oral 1200 ml IV Total 350 ml Output Urine Total 1900 ml # Voids 2 Vital Signs Date Time Temp Pulse Resp B/P (MAP) Pulse Ox O2 Delivery O2 Flow Rate FiO2 10/15/24 06:00 97.8 74 19 160/92 (114) 96 Room Air 10/14/24 20:00 0.0 General: General: Appears uncomfortable, in pain, awake, alert oriented to place, time, and person HEENT: No JVD. No pallor present, no icterus, moist mucous membranes Neck: No masses and tenderness Resp: Unlabored. Lungs clear to auscultation bilaterally. Chest: Normal expansion Cardiovascular: Regular Rate and rhythm, normal S1 and S2, S4 present, without murmur or rub Abdomen: Soft and nontender, no organomegaly, no guarding and rigidity, bowel sounds present Neuro: Intention tremor observed. No focal weakness in the upper and lower limb muscles, power of the muscles 5/5 bilateral upper and lower extremities, normal reflexes bilaterally. Cranial nerves intact Extremities: No edema. Erythema and tenderness in both lower extremities extending from feet to knees, however, significantly improved. No cyanosis or c lubbing. Right MCP joint erythematous, swollen and tender with limited ROM, ulnar deviation of bilateral hands. Skin: Warm and Dry Psych: Normal affect. Cooperative with care Diagnostic Data Last Recorded Lab Results: 10/15/24 0442 10/15/24 0433 Diagnostic Data: Laboratory Tests Test 10/12/24 09:34 10/13/24 11:28 10/15/24 04:42 Activated Partial Thromboplast Time 21 SECONDS (22-32) L D-Dimer 2.39 MG/L FEU (0-0.50) H D-Dimer Comment Prothrombin Time 10.6 SECONDS (9.0-12.0) INR International Normalized Ratio 1.0 INR Coagulation Comments Additional Plan Assessment This is a 64-year-old male with a history of COPD, CKD, hypotension, hypothyroidism, rheumatoid arthritis, gout came to the ER with the chief complaints of bilateral lower extremity edema, erythema, pain. He was diagnosed with cellulitis and is being managed with Zosyn and linezolid. He has known history of CKD 3, with a baseline creatinine of 2.0-2.2, he was given IV Lasix 40 mg two doses and his creatinine increased to 2.6, Lasix was stopped and fluids were restarted, currently on NS@ 75 mL/hour, his creatinine improved to 2.4. Previously used to follow up with the histopath tech in [facility] and he recently moved to [place] and does not have a PCP yet has an upcoming appointment with the PCP. And does not have a histopath tech yet. He uses NSAIDs about twice a week for gout flares. Denies any history of diabetes, hypertension, nephrolithiasis. Also denies history of BPH, urine output is good. Denies any blood in urine but has foamy urine. Also developed acute gout flare at right MCP joint, and was given Kenalog 60 mg IM once. Usually uses prednisolone during gout flares and is on allopurinol daily for gout prophylaxis. Plan FLOR on CKD III, Creatinine at the time of admission, 2.16, increased to 2.6 and then improved to 2.4 Baseline creatinine is not known, creatinine on 08/25/2024 was 1.97 Currently on NS@ 75 mL/hour Urine osmolality-373, urine sodium-91,FeNa-0.3, Feurea-55.8 Urinalysis showed-proteinuria up to 30 Avoid NSAIDs, morphine, stop losartan. Renal diet Acute flare-up of gout, right 1st MCP joint, improved Uric acid 8.1 60 mg Kenalog IM once. Will start allopurinol on discharge. Bilateral lower extremity cellulitis, left worse than right DVT, ruled out No sepsis/SIRS criteria Patient failed outpatient treatment with Keflex and doxycycline Discontinued vancomycin and ceftriaxone Continue IV linezolid 600 mg twice daily and Zosyn TID, day 2 Patient is hemodynamically stable. Will continue monitoring for signs of sepsis. Severe neck pain History of DDD with possible associated muscle contracture Rule out spinal stenosis Will Obtain MRI of spine Alcohol use disorder Mild alcohol withdrawal Patient's last drink was 2 days ago Has mild asterixis On alcohol withdrawal protocol Patient is already attempting to quit and is staying at a sober living home Chronic HFpEF, not in exacerbation Dyspnea on exertion Rule out PE DVT absent. Echocardiogram shows EF of 65%. Mildly dilated right ventricle and mildly elevated RVSP Chest x-ray is unremarkable Pending V/Q scan Hypertension Hold losartan Continue Amlodipine 10 mg daily. History of COPD, not in exacerbation Currently not on inhalers He will likely benefit from pulmonary function tests on an outpatient basis History of hypothyroidism TSH is elevated but T4 is normal Continue levothyroxine 200 mcg day Code Status: Full code DVT prophylaxis: Heparin Date of Service: Oct 15, 2024 Billing Provider: RACHELE BLAIR III DO ADRIENNE PATEL, RES Oct 15, 2024 08:58 RACHELE BLAIR III DO Oct 15, 2024 17:54
[2024-10-15 10:00] VITALS: BP 153/97; PULSE 79; RESP 13; TEMP 98.7; O2SAT 94
--- NOTE | 2024-10-15 12:50 | RADIOLOGY REPORT ---
PROCEDURE: MR MRI C SPINE INDICATION: Rule out spinal stenosis EXAM DATE: 10/15/2024 10:48 AM COMPARISON: None TECHNIQUE: MRI cervical spine without intravenous contrast. FINDINGS: Limited by motion. The cervical alignment is intact. There are degenerative endplate changes with anterior osteophytes mid to lower cervical levels. The visualized posterior fossa and craniocervical junction are intact. The intrinsic cervical cord signal appears intact. There is no prevertebral soft tissue swelling. The visualized paraspinal soft tissues are otherwise unremarkable. The following axial levels are detailed below: C2-C3: Unremarkable. C3-C4: Unremarkable. C4-C5: Mild posterior disc osteophyte complex complicated by facet arthropathy associated with mode rate to severe right neural foraminal stenosis. No significant central canal stenosis. C5-C6: Mild posterior disc osteophyte complex complicated by facet arthropathy associated with mode rate to severe left neural foraminal stenosis. No significant central canal stenosis. C6-C7: Mild posterior disc osteophyte complex complicated by facet arthropathy associated with mode rate to severe left neural foraminal stenosis. No significant central canal stenosis. C7-T1: Unremarkable. IMPRESSION: 1. Limited by motion. Multilevel degenerative disease. No significant central canal stenosis. Neur al foraminal stenosis as above. 2. No definite abnormal cord signal. HS:Y
[2024-10-15] MEDS ORDERED: VANCOMYCIN LEVEL IV ONE (14:30)
[2024-10-15 18:00] VITALS: BP 170/95; PULSE 84; RESP 18; TEMP 98.6; O2SAT 99
--- NOTE | 2024-10-15 18:24 | PROGRESS NOTE- Residence ---
Progress Note - Resident Providers to CC Resident Creating Document: MAHESH HOLLEY CC: JANY RENEE MD ~ Antibiotic Timeout Antibiotic Ordered?: Yes Subjective The patient was seen and examined at bedside today. He continues with significant neck pain, however improved. Continues with significant stiffness of his hands Objective Vital Signs Date Time Temp Pulse Resp B/P (MAP) Pulse Ox O2 Delivery O2 Flow Rate FiO2 10/15/24 10:00 98.7 79 13 153/97 (115) 94 Room Air 10/15/24 07:30 0.0 Result Diagram: 10/15/24 0442 10/15/24 0433 General: Appears uncomfortable, in pain, awake, alert oriented to place, time, and person HEENT: No JVD. No pallor present, no icterus, moist mucous membranes Neck: No masses and tenderness Resp: Unlabored. Lungs clear to auscultation bilaterally. Chest: Normal expansion Cardiovascular: Regular Rate and rhythm, normal S1 and S2, S4 present, without murmur or rub Abdomen: Soft and nontender, no organomegaly, no guarding and rigidity, bowel sounds present Neuro: Intention tremor observed. No focal weakness in the upper and lower limb muscles, power of the muscles 5/5 bilateral upper and lower extremities, normal reflexes bilaterally. Cranial nerves intact Extremities: No edema. Erythema and tenderness in both lower extremities extending from feet to knees, however, significantly improved. No cyanosis or c lubbing. Right MCP joint erythematous, swollen and tender with limited ROM Skin: Warm and Dry Psych: Normal affect. Cooperative with care Coagulation Studies Laboratory Tests Test 10/12/24 09:34 10/13/24 11:28 10/15/24 04:42 Activated Partial Thromboplast Time 21 SECONDS (22-32) L D-Dimer 2.39 MG/L FEU (0-0.50) H D-Dimer Comment Prothrombin Time 10.6 SECONDS (9.0-12.0) INR International Normalized Ratio 1.0 INR Coagulation Comments Assessment Assessment Patient is 63-year-old male with history of COPD, CKD, hypertension, hypothyroidism, neuropathy and gout who came to the ED due to lower extremity pain. Admitted for evaluation management of lower extremity cellulitis and mild alcohol withdrawal. Plan Plan Bilateral lower extremity cellulitis, left worse than right, improved DVT, ruled out No sepsis/SIRS criteria Patient failed outpatient treatment with Keflex and doxycycline Discontinued vancomycin and ceftriaxone On IV linezolid 600 mg twice daily and Zosyn TID, day 3. Will DC Zosyn Patient is hemodynamically stable. IV fluids DCd Will continue monitoring for signs of sepsis. Severe neck pain History of DDD with possible associated muscle contracture Rule out spinal stenosis MRI of cervical spine shows Limited by motion. Multilevel degenerative disease. No significant central canal stenosis. Neural foraminal stenosis. No definite abnormal cord signal. Continue Baclofen Start Prednisone 20mg daily x5 days Will likely need outpt spine surgery eval Alcohol use disorder Mild alcohol withdrawal Patient's last drink was 2 days ago Has mild asterixis Continue alcohol withdrawal protocol Patient is already attempting to quit and is staying at a sober living home FLOR on CKD III, likely 2/2 tubular stasis Mild hyponatremia Kidney function worsened yesterday. Slightly improved today to 2.4 Used to follow with kidney doctor in [facility] Continue monitoring BMP Nephro consulted. Appreciate recommendations Chronic HFpEF, not in exacerbation Dyspnea on exertion PE unlikely DVT absent. Echocardiogram shows EF of 65%. Mildly dilated right ventricle and mildly elevated RVSP Chest x-ray is unremarkable V/Q scan showed low probability for PE Started on MEtoprolol succinate 25mg QD Hypertension Hold losartan Continue Amlodipine 10 mg daily. History of COPD, not in exacerbation Currently not on inhalers He will likely benefit from pulmonary function tests on an outpatient basis Acute flare-up of gout, right 1st MCP joint, improved Uric acid 8.3. 60 mg Kenalog IM once. If kidney function gets better, we will start him on colchicine. Will start allopurinol on discharge. Prednisone as above History of hypothyroidism TSH is elevated but T4 is normal Continue levothyroxine 200 mcg day Code Status: Full code DVT prophylaxis: Heparin Analgesia/sedation: Methadone Nutrition: Heart healthy diet PT: Ordered Prognosis: Guarded Disposition: Continue care in ortho floor. Continue medical management. Pt will likely need rehab Mahesh Elliott MD Internal Medicine Resident PGY-1 Date of Service: Oct 15, 2024 Billing Provider: JANY RENEE MD, LEONARDO LUIS Oct 15, 2024 18:24
[2024-10-15 22:00] VITALS: BP 153/88; PULSE 77; RESP 18; TEMP 97.5; O2SAT 96
[2024-10-16 05:28] LABS: MEAN PLATELET VOLUME 7.2 FL (7.4-10.4); RED CELL DISTRIBUTION WIDTH 16.2 % (11.5-14.5)
[2024-10-16 05:39] LABS: INR 1.0 INR
[2024-10-16 05:43] LABS: CREATININE 2.41 MG/DL (0.60-1.10); PHOSPHORUS 3.5 MG/DL (2.3-4.5); TOTAL CARBON DIOXIDE 22.3 MMOL/L (24-32); eCRCL 33 ML/MIN; eGFR 27 ML/MIN
[2024-10-16 06:00] VITALS: BP 144/85; PULSE 77; RESP 20; TEMP 97.2; O2SAT 96
[2024-10-16] MEDS ORDERED: methadone 10mg tablet PO SCH (08:00)
[2024-10-16] MEDS: metoprolol succinate 25mg (24-HOUR) SR. Tablet PO SCH (09:54)
[2024-10-16 10:00] VITALS: BP 154/82; PULSE 81; RESP 17; TEMP 98.7; O2SAT 99
[2024-10-16] MEDS ORDERED: ALLO100T25 PO (12:34)
[2024-10-16] MEDS ORDERED: FOLI1TAB27 PO (12:34)
[2024-10-16] MEDS ORDERED: LACT1CAP26 PO (12:34)
[2024-10-16] MEDS ORDERED: thiamine tablet PO (12:34)
[2024-10-16] MEDS ORDERED: LEVO200T PO (12:34)
[2024-10-16] MEDS ORDERED: NOR5T PO (12:34)
[2024-10-16] MEDS ORDERED: METO-395 PO (12:34)
[2024-10-16] MEDS ORDERED: PRED20TA PO (12:34)
--- NOTE | 2024-10-16 14:54 | PROGRESS NOTE ---
Progress Note Dictate Providers to CC ~ Progress Note: Resident initial evaluation: This is a 64-year-old male with a history of COPD, CKD, hypotension, hypothyroidism, rheumatoid arthritis, gout came to the ED with the chief complaints of bilateral lower extremity edema, erythema, pain. He was diagnosed with cellulitis and is being managed with Zosyn and linezolid. He has known history of CKD 3, with a baseline creatinine of 2.0-2.2, he was given IV Lasix 40 mg two doses and his creatinine increased to 2.6, Lasix was stopped and fluids were restarted, currently on NS@ 75 mL/hour, his creatinine improved to 2.4. Previously used to follow up with the concierge receptionist in [facility] and he recently moved to [place] and does not have a PCP yet has an upcoming appointment with the PCP. He uses NSAIDs about twice a week for gout flares. Denies any history of diabetes, hypertension, nephrolithiasis. Also denies history of BPH, urine output is good. Denies any blood in urine but has foamy urine. Also developed acute gout flare at right MCP joint, and was given Kenalog 60 mg IM once. Usually uses prednisolone during gout flares and is on allopurinol daily for gout prophylaxis. Antibiotic Ordered?: Yes Subjective Subjective He reports doing well today, sitting up in his chair, conversant, no leg pain, swelling improved today versus yesterday with treatment, at baseline creatinine right now. Objective Vitals Vital Signs Date Time Temp Pulse Resp B/P (MAP) Pulse Ox O2 Delivery O2 Flow Rate FiO2 10/16/24 10:00 98.7 81 17 154/82 (106) 99 Room Air 10/15/24 07:30 0.0 General: Well appearing, NAD, appears comfortable Neck: No JVD, or bruits CV: RRR w/o murmur, pulses 2+ symmetrical, 1+ edema Pulm: CTA Bilateral no wheezes Abd: + BS, NT Musc: Ambulates without assistance, strength 5/5 in all major muscle groups Lab Results: 10/16/24 0450 10/16/24 0450 Coagulation Studies Laboratory Tests Test 10/12/24 09:34 10/13/24 11:28 10/16/24 04:50 Activated Partial Thromboplast Time 21 SECONDS (22-32) L D-Dimer 2.39 MG/L FEU (0-0.50) H D-Dimer Comment Prothrombin Time 10.6 SECONDS (9.0-12.0) INR International Normalized Ratio 1.0 INR Coagulation Comments Problem\Assessment\Plan Problems/Diagnosis: (1) FLOR (acute kidney injury) Assessment & Plan: Most consistent with cellulitis, and hypovolemia and illness, resolved was baseline with IV fluid rehydration and antibiotic therapy, I would expect no for improvement in the hospital, from our perspective he is okay to go home Additional Plan From a nephrology perspective he is at his baseline level of function of 2.2-2.4 from his description, follow-up in the nephrology clinic within a month with routine CKD 4 labs, he had a concierge receptionist in [facility] and now he is moved to [place] and needs to establish with our clinic as soon as possible thank you. RACHELE BLAIR III DO Oct 16, 2024 14:54
[2024-10-16] MEDS ORDERED: DOXY-243 PO (15:43)
--- NOTE | 2024-10-16 17:00 | DISCHARGE SUMMARY-Residence ---
Discharge Summary Providers to CC Resident Creating Document: KORI ROMEO RES CC: JANY RENEE MD ~ Discharge Summary Assessment 63-year-old male with history of COPD, CKD, hypertension, hypothyroidism, neuropathy and gout who came to the ED due to lower extremity pain. Admitted for evaluation management of lower extremity cellulitis and mild alcohol withdrawal. Admission Diagnosis: Leg cellulitis Hospital Course DATE OF ADMISSION: 10/12/2024 DATE OF DISCHARGE: 10/16/2024 Discharge Diagnosis\Comment: Right lower extremity cellulitis Severe osteoarthritis of cervical spine Alcohol use disorder Mild alcohol withdrawal FLOR on CKD3, echo prerenal secondary to renal tubular stasis Mild hyponatremia resolved Chronic heart failure with preserved ejection fraction, not in exacerbation Hypertension COPD not in exacerbation Acute flare-up of gout of right 1st MCP joint Hypothyroidism Opioid deaddiction Operations\Procedures: None Consultants: Dr. De La Cruz, nephrology Complications: None Condition on DC: Stable New Medications: Allopurinol (Allopurinol) 100 Mg Tablet 0.5 TAB PO alternate day for 30 Days, #30 TAB 0 Refills please take half tablet every other day Doxycycline Hyclate (Doxycycline Hyclate) 100 Mg Tablet.dr 100 MG PO BID for 5 Days, #10 TAB Lactobacillus Rhamnosus (Culturelle) 10 Billion Cell Capsule 1 CAP PO DAILY for 30 Days, #30 CAP 0 Refills Levothyroxine Sodium (Synthroid) 200 Mcg Tablet 1 TAB PO DAILY for 30 Days, #30 TAB 0 Refills Amlodipine Besylate (Amlodipine Besylate) 5 Mg Tablet 10 MG PO DAILY for 30 Days, #30 TAB Folic Acid* (Folic Acid*) Y Tab 1 MG PO DAILY for 30 Days, #30 TAB Metoprolol Succinate (Metoprolol Succinate) 25 Mg Tab.sr.24h 25 MG PO DAILY for 30 Days, #30 TAB.SR Prednisone* (Prednisone*) 20 Mg Tablet 20 MG PO DAILY for 4 Days, #4 TAB [thiamine tablet] () 100 MG TABLET 100 MG PO DAILY for 30 Days, #30 Continued Medications: Chlordiazepoxide Hcl (Librium) 25 Mg Capsule 25 MG PO DAILY for 2 Days, CAP Methadone Hcl* (Dolophine*) 10 Mg Tablet 40 MG PO TID, TAB Discontinued Medications: Levothyroxine Sodium (Synthroid) Unknown Strength Tablet Unknown Dose PO DAILY for 30 Days, #30 TAB 0 Refills Discharge Summary: Patient is 63-year-old male with history of COPD, CKD, hypertension, hypothyroidism, neuropathy and gout who came to the ED due to lower extremity pain. Admitted for evaluation management of lower extremity cellulitis and mild alcohol withdrawal. Hospital course -patient had right lower extremity cellulitis, failed outpatient treatment with the Keflex and doxycycline. He is initially started on ceftriaxone and vancomycin which was then changed to linezolid and Zosyn. -initial creatinine was 2.1 went up to 2.6-2.7, Zosyn was discontinued and vanco was discontinued and just continued on linezolid. Market Risk Manager Dr. De La Cruz consulted. Patient's creatinine came down to baseline of 2.1 at the time of discharge and creatinine bump is thought to be secondary to FLOR. Patient is advised to follow up with Dr. Heller at the time of discharge -he also had severe neck pain and MRI of the cervical spine showed multilevel degenerative disease with neural foraminal stenosis but no significant can tell canal stenosis. Pain got better with baclofen. -he had right MCP joint swelling and erythema which is thought to be secondary to gouty flare. He received one dose of IM Kenalog 60 mg and was started on prednisolone 20 mg for five days and is discharged on allopurinol 50 mg every alternate day at the time of discharge -we discussed with patient regarding the option of going to rehab however he adamantly refused it and wants to go back to the sober facility that he came from. Patient is using methadone hence we discontinued linezolid and is discharged on doxycycline. -we added new medications amlodipine and metoprolol for hypertension. He is hemodynamically stable at the time of discharge and his physical condition is as follows General: Appears uncomfortable, in pain, awake, alert oriented to place, time, and person HEENT: No JVD. No pallor present, no icterus, moist mucous membranes Neck: No masses and tenderness Resp: Unlabored. Lungs clear to auscultation bilaterally. Chest: Normal expansion Cardiovascular: Regular Rate and rhythm, normal S1 and S2, S4 present, without murmur or rub Abdomen: Soft and nontender, no organomegaly, no guarding and rigidity, bowel sounds present Neuro: Intention tremor observed. No focal weakness in the upper and lower limb muscles, power of the muscles 5/5 bilateral upper and lower extremities, normal reflexes bilaterally. Cranial nerves intact Extremities: No edema. Erythema and tenderness in both lower extremities extending from feet to knees, however, significantly improved. No cyanosis or clubbing. Right MCP joint erythematous, swollen and tenderness improved with limited ROM Skin: Warm and Dry Psych: Normal affect. Cooperative with care Labs at the time of discharge CBC-H and H , WBC 9.3, platelets 251 CMP-sodium 137, potassium four point high, blood urea nitrogen 31, creatinine 2.41, uric acid eight Bilirubin 0.6, AST/ALT/ALP 77/46/109, albumin 2.8, protein 8.9 TSH 7.79 MRI cervical spine on 10/15 IMPRESSION: 1. Limited by motion. Multilevel degenerative disease. No significant central canal stenosis. Neural foraminal stenosis as above. 2. No definite abnormal cord signal. NM scan lung on 10/14 1. Low probability for PE. Chest x-ray on 10/12 IMPRESSION: No acute cardiopulmonary disease. 2D echo on 10/12 LEFT VENTRICLE Normal LV size and function. Mild concentric hypertrophy. LVEF is 65%. RIGHT VENTRICLE RV appears mildly dilated with normal contractility. RVSP is estimated at 42 mmHG. ATRIA The left atrium size is normal. AORTIC VALVE Trileaflet AV appears sclerotic without stenosis. Mild insufficiency. MITRAL VALVE MV is thickened with no annular calcification or stenosis. Mild mitral regurgitation. TRICUSPID VALVE The tricuspid valve is normal in structure. Trace tricuspid regurgitation. PULMONIC VALVE The pulmonary valve is normal in structure. Trace pulmonic regurgitation. GREAT VESSELS The aortic root is normal in size. The ascending aorta is normal in size. The IVC is normal in size and collapses >50% with inspiration. PERICARDIUM There is no pericardial effusion Venous Doppler on 10/12 No evidence of DVT in the left lower extremity. His discharge medications can be found above, and he is sent home with the following recommendations Follow up with your PCP within a week of discharge Please make appointment with Dr. De La Cruz, water carter at his office. His personal card with contact number to make the appointment is given to you Strongly recommended to be abstinent from alcohol and other drugs We started you on a new medication amlodipine and metoprolol for high blood pressure Return to the ER in case of any worsening pain *Problems/Diagnosis: (1) FLOR (acute kidney injury) Total Time Spent on D/C: > 30 Minutes Date of Service: Oct 16, 2024 Billing Provider: JANY RENEE MD, HARIVARSHA, RES Oct 16, 2024 17:00
[2024-10-18] MEDS ORDERED: DOXY-460 PO (10:30)
== END 2024-10-16 16:34 | disposition home or self-care (01) | DRG 383 ==
LOC: ER 08:28 → ED HOLD 11:25 → ORTHO 4S 12:30
PROVIDERS: ADMIT Family Medicine; ATTEND Family Medicine
PROC: CB121ZZ Planar Nuclear Medicine Imaging of Lungs and Bronchi using Technetium 99m (Tc-99m) (ICD-10-PCS; principal; 2024-10-14)
DX: L03.116 Cellulitis of left lower limb (principal); N17.0 Acute kidney failure with tubular necrosis; I13.0 Hypertensive heart and chronic kidney disease with heart failure and stage 1 through stage 4 chronic kidney disease, or unspecified chronic kidney disease; I50.32 Chronic diastolic (congestive) heart failure; E87.1 Hypo-osmolality and hyponatremia; F10.939 Alcohol use, unspecified with withdrawal, unspecified; E03.9 Hypothyroidism, unspecified; J44.9 Chronic obstructive pulmonary disease, unspecified; M06.9 Rheumatoid arthritis, unspecified; N18.30 Chronic kidney disease, stage 3 unspecified; L03.115 Cellulitis of right lower limb; M10.071 Idiopathic gout, right ankle and foot; M47.812 Spondylosis without myelopathy or radiculopathy, cervical region
CPT/HCPCS: 36415; 71045; 72141; 80048; 80053; 80061; 80305; 80320; 81001; 82150; 82570; 83036; 83605; 83690; 83735; 83880; 83930; 83935; 84100; 84133; 84145; 84156; 84300; 84439; 84443; 84540; 84550; 85025; 85379; 85610; 85730; 86140; 87040; 87081; 93005; 93306; 93971; 97110; 97116; 97161; 97530; 99285; A6258; A6446; A6590; G0378; J0696; J1171; J1644; J1938; J2020; J2270; J2543; J3301; J3360; J3370; J3411; J3490; J7030; J7050; J7512

== ENCOUNTER 2024-11-07 04:36 | Emergency (ER) | payer MEDICAID ==
[~2024-11-07] VITALS: Ht 182.9 cm; Wt 81.8 kg
[~2024-11-07 04:36] MED LIST: ALLO100T25 PO; CHLO25CA10 PO; FOLI1TAB27 PO; LACT1CAP26 PO; LEVO200T PO; METH-603 PO; METO-395 PO; NOR5T PO; PRED20TA PO; thiamine tablet PO
--- NOTE | 2024-11-07 04:46 | Physician Documentation ---
History of Present Illness ~ Chief Complaint: Arm Pain Stated Complaint: ARM PAIN Time Seen by MD: 04:40 Primary Medical Doctor: Dr. Butt in [facility] Patient presents to the emergency room with chief complaint of left arm pain he was seen at [facility] yesterday after falling off a bed in suffering a wrist fracture and possible occult elbow fracture. Patient normally ambulates with a walker that has drinking when this occurred. Tonight he comes in because he has increasing arm pain. He has had nothing for the pain as he states they did not give him any prescriptions Tetanus within 5 years: No Medication Reconciliation Allergies: Coded Allergies: No Known Allergies (Unverified , 10/12/24) Scheduled Allopurinol (Allopurinol), 0.5 TAB PO alternate day Amlodipine Besylate (Amlodipine Besylate), 10 MG PO DAILY Chlordiazepoxide Hcl (Librium), 25 MG PO DAILY, (Reported) Folic Acid* (Folic Acid*), 1 MG PO DAILY Lactobacillus Rhamnosus (Culturelle), 1 CAP PO DAILY Levothyroxine Sodium (Synthroid), 1 TAB PO DAILY Methadone Hcl* (Dolophine*), 40 MG PO TID, (Reported) Metoprolol Succinate (Metoprolol Succinate), 25 MG PO DAILY Prednisone* (Prednisone*), 20 MG PO DAILY [thiamine tablet], 100 MG PO DAILY Scheduled PRN Hydrocodone Bit/Acetaminophen 5/325 MG (Levant 5/325 MG), 1 TAB PO Q4-6 hours PRN for pain Hydrocodone Bit/Acetaminophen 5/325 MG (Levant 5/325 MG), 1 TAB PO Q6H PRN for pain Past Medical History Patient History: FH: heart disease FATHER Alcohol Use: Heavy Drug Use: other Lives with: Other Lives In: Other Occupation: disabled Review of Systems ROS All review of systems negative except as per HPI Physical Exam Vital Signs: Temperature: 98.4, Source: Oral, Heart Rate: 80, Respiratory Rate: 20, BP: 174/96, Pulse Oximetry: 100, Weight: 81.820 Oxygen Flow Rate: 0 Physical Exam General: Patient is awake, alert, oriented x4 in mild distress Head: Normocephalic and atraumatic. Eyes: Conjunctival normal. EOMI. PERRL. ENT: Mucous membranes moist. Neck: Supple, trachea is midline. Chest: Clear to auscultation bilaterally without rales, rhonchi, or wheezes. There is no accessory muscle use or retractions. Cardiac: RRR without murmurs, gallops, or rubs. Abd: Soft, nondistended, nontender, with normoactive bowel sounds. No guarding, rebound, or rigidity. Extremities: Right upper extremity normal, left upper extremity wrapped in splint with good capillary refill Progress Results/Orders Results/Orders Completed Orders - COY PARKS MD Ketorolac Trometh 15mg/Ml Vial (Toradol (11/07/24 04:50) Acetaminophen 1,000mg/100ml Iv (Ofirmev (11/07/24 04:50) Fentanyl/Pf (Fentanyl 0.05 Mg/Ml Syringe (11/07/24 04:50) Ondansetron Inj. (Zofran 4mg/2ml Vial) (11/07/24 05:15) Midazolam 1 Mg/Ml 2ml Inj. (Versed 1 Mg/ (11/07/24 05:25) Morphine 4mg/Ml Inj. (Morphine Inj.) (11/07/24 06:00) Vital Signs 11/07/24 11/07/24 11/07/24 11/07/24 04:38 04:51 05:37 05:39 Temp 98.4 98.4 98.4 Pulse 80 82 68 Resp 20 16 20 16 B/P (MAP) 174/96 174/96 (122) 171/91 (117) Pulse Ox 100 97 98 O2 Flow Rate 0 0 0 11/07/24 11/07/24 11/07/24 11/07/24 06:29 06:47 08:00 08:00 Pulse 67 Resp 20 22 15 15 B/P (MAP) 156/81 (106) Pulse Ox 98 11/07/24 08:28 Pulse 71 Resp 20 B/P (MAP) 167/95 (119) Medical Decision Making Findings Patient presents to the emergency room for evaluation of left arm pain as per HPI. Differentials include but are not limited to splint tourniquet, uncontrolled pain, malingering, opioid withdrawal. We are able to get records from [facility] which confirmed wrist fracture and possible elbow fracture. Nothing that it could fine she has any sort of prescription written and patient states he was not given any prescription therefore did not take any pain medications. History is complicated as patient takes methadone but has been out of the past two days. We will control his pain here in the emergency room. Oncoming doctor to ensure pain is controlled. I will give him prescription for pain medications. Patient is chronic renal failure stage 3 and is declining NS AIDs. Patient has opiate withdrawal. He has not had his methadone for a couple of days. Patient receives methadone 130 mg a day at [facility]. Patient has not been able to get to [facility] because his housing it changed and he is now currently at the [place]. Patient is going to go to [facility] tomorrow. Patient is given his single dose of methadone here 130 mg and Percocet 10 mg here for his fractured wrist. Patient will be given a prescription for Levant. Patient is stable for discharge. Departure Time of Disposition: 09:24 Disposition: HOME / SELF CARE / HOMELESS Impression: Primary Impression: Fracture of radius Condition: Stable Discharge Instructions: Extremity Fracture Additional Instructions: Follow up with orthopedist as directed by your previous visit at [facility] Referrals: NO PRIMARY CARE PROVIDER (PCP) Prescriptions Hydrocodone Bit/Acetaminophen 5/325 MG (Levant 5/325 MG) 5 Mg/325 Mg Tablet 1 TAB PO Q6H PRN for pain, #10 TAB Prov: SILVIA SMITH MD 11/07/24 Hydrocodone Bit/Acetaminophen 5/325 MG (Levant 5/325 MG) 5 Mg/325 Mg Tablet 1 TAB PO Q4-6 hours PRN for pain, #12 TAB Prov: COY PARKS MD 11/07/24 Education Educated: Patient Educated regarding: diagnosis, treatment, need for follow up Signature Scribe Signature: No Scribe Attestation: The note accurately reflects work and decisions made by me.Coy Parks MD 11/08/24 09:50 No [email or web address] Crandall MD Nov 07, 2024 04:46 SILVIA SMITH MD Nov 07, 2024 09:26
[2024-11-07] MEDS: acetaminophen 1,000mg/100ml IV 100 ML IV ONE (05:14)
[2024-11-07] MEDS: fentaNYL/PF 50MCG/1 ML 2ML syringe IV ONE (05:14)
[2024-11-07] MEDS: ketorolac trometh 15mg/ml vial 15 MG/ML ML IV ONE (05:14)
[2024-11-07] MEDS: ondansetron/PF 4mg/2ml inj IV ONE (05:23)
[2024-11-07] MEDS: midazolam 1 mg/ML 2ml injection IV ONE (05:34)
[2024-11-07 05:39] VITALS: TEMP 98.4
[2024-11-07] MEDS ORDERED: HYDR-3965 PO ×2 (06:01→10:39)
[2024-11-07] MEDS: morphine 4 MG/ML inj SYRINge IV ONE (06:11)
[2024-11-07 06:29] VITALS: O2SAT 98
[2024-11-07] MEDS: methadone 10mg tablet PO ONE ×2 (06:46→06:59)
[2024-11-07 08:28] VITALS: BP 167/95; PULSE 71; RESP 20
== END 2024-11-07 12:00 | disposition home or self-care (01) ==
LOC: ER 04:36
DX: S52.92XA Unspecified fracture of left forearm, initial encounter for closed fracture (principal); W06.XXXA Fall from bed, initial encounter; Y93.89 Activity, other specified; Y92.89 Other specified places as the place of occurrence of the external cause; Y99.8 Other external cause status
CPT/HCPCS: 96365; 96375; 99285; J0131; J2250; J2270; J2405; J3010; A4565